=== PATIENT | male | born 1965 | race Caucasian/White ===

== ENCOUNTER 2021-09-28 09:00 | Emergency (ER) | payer OTHER ==
[~2021-09-28] VITALS: Ht 185.4 cm; Wt 104.3 kg
[2021-09-28] MEDS ORDERED: PREDNISONE 20MG20 MG PO (12:54)
[2021-09-28] MEDS ORDERED: HYDROCODON-ACE1 EAC2 PO (12:54)
== END 2021-09-28 13:43 | disposition home or self-care (01) ==
LOC: FER 09:00
DX: M51.16 Intervertebral disc disorders with radiculopathy, lumbar region (principal); Z88.5 Allergy status to narcotic agent
CPT/HCPCS: 72131; 96374; 96375; 96376; J1170; J2405; J2930